=== PATIENT | male | born 1980 | race Caucasian/White ===

== ENCOUNTER 2017-02-21 09:31 | Observation (INO) | payer OTHER ==
[2017-02-21] MEDS ORDERED: TRUVADA 200 MG1 EAC1 PO (09:40)
[2017-02-21] MEDS ORDERED: LOSARTAN-HCTZ1 EAC4 PO (09:40)
[2017-02-21] MEDS ORDERED: DAPSONE PO (09:40)
[2017-02-21] MEDS ORDERED: XANAX0.5 M1 PO (09:41)
[2017-02-21] MEDS ORDERED: TIVICAY50 M1 PO (09:41)
[2017-02-21 10:48] LABS: BASO % 0.4 % (0-2); EOS % 1.8 % (0-7); EOSINOPHIL ABSOLUTE COUNT 0.1 tho/cmm (0.0-0.7); HCT-HEMATOCRIT 41.9 % (36.0-53.5); HGB-HEMOGLOBIN 14.6 gm/dl (13.5-17.0); LYMPH % 14.1 % (20-45); LYMPH ABSOLUTE COUNT 0.6 tho/cmm (0.8-4.5); MCH (MEAN CORPUSCULAR HGB) 32.3 pg (28.0-32.0); MCHC MEAN CORPUSCULAR HGB CONC 34.8 % (32.0-36.0); MCV (MEAN CELL VOLUME) 92.7 fl (82.0-96.0); MEAN PLATELET VOLUME 9.3 cmc (9.4-12.4); MONO % 8.4 % (0-12); MONOCYTE ABSOLUTE COUNT 0.4 tho/cmm (0.0-1.2); NEUTROPHIL ABSOLUTE COUNT 3.4 tho/cmm (1.6-8.0); NEUTROPHIL-AUTOMATED 3.4 tho/cmm (1.6-8.0); NEUTROPHILS % 75.3 % (40-80); PLATELET COUNT 185 tho/cmm (150-450); RED BLOOD COUNT 4.52 mil/cmm (4.40-5.70); RED CELL DISTRIBUTION WIDTH 11.6 % (12.4-16.4); WHITE BLOOD COUNT 4.5 tho/cmm (4.0-10.0)
[2017-02-21 10:59] LABS: CREATININE 1.04 mg/dl (0.60-1.30); eGFR VALUE FOR BLACK >90 mL/Min
[2017-02-21 11:00] LABS: C-REACTIVE PROTEIN <0.3 mg/dl (0-0.9)
[2017-02-21] MEDS ORDERED: LUNESTA2 M1 PO (14:55)
[2017-02-22 06:11] LABS: EOS % 0.2 % (0-7); HCT-HEMATOCRIT 41.7 % (36.0-53.5); HGB-HEMOGLOBIN 14.3 gm/dl (13.5-17.0); IMMATURE GRANULOCYTES ABSOLUTE 0.01 tho/cmm (0-0.03); IMMATURE GRANULOCYTES PERCENT 0.2 % (0-0.3); LYMPH % 10.3 % (20-45); LYMPH ABSOLUTE COUNT 0.5 tho/cmm (0.8-4.5); MCH (MEAN CORPUSCULAR HGB) 32.1 pg (28.0-32.0); MCHC MEAN CORPUSCULAR HGB CONC 34.3 % (32.0-36.0); MCV (MEAN CELL VOLUME) 93.5 fl (82.0-96.0); MEAN PLATELET VOLUME 9.6 cmc (9.4-12.4); MONO % 0.9 % (0-12); NEUTROPHIL ABSOLUTE COUNT 3.8 tho/cmm (1.6-8.0); NEUTROPHIL-AUTOMATED 3.8 tho/cmm (1.6-8.0); NEUTROPHILS % 88.4 % (40-80); PLATELET COUNT 169 tho/cmm (150-450); RED BLOOD COUNT 4.46 mil/cmm (4.40-5.70); RED CELL DISTRIBUTION WIDTH 11.7 % (12.4-16.4); WHITE BLOOD COUNT 4.4 tho/cmm (4.0-10.0)
[2017-02-22 06:20] LABS: ANION GAP 14 mmol/L (0-20); BLOOD UREA NITROGEN 14 mg/dl (6-24); CALCIUM 9.3 mg/dl (8.5-10.5); CARBON DIOXIDE-VENOUS 29 mmol/L (22-32); CHLORIDE 98 mmol/l (96-110); CREATININE 1.09 mg/dl (0.60-1.30); GLUCOSE 140 mg/dL (70-110); POTASSIUM 4.8 mmol/L (3.7-5.1); SODIUM 136 mmol/L (135-145); eGFR VALUE FOR BLACK >90 mL/Min
[2017-02-22] MEDS ORDERED: MEDROL4 M1 PO (11:57)
[2017-02-22] MEDS ORDERED: PERCOCET 5-3251 EACH PO (12:03)
[2017-02-22] MEDS ORDERED: MIRALAX17 G2 PO (12:07)
[2017-02-22] MEDS ORDERED: IBUPROFEN (12:09)
[2017-02-22] MEDS ORDERED: TYLENOL325 M2 (12:09)
== END 2017-02-22 14:55 ==
LOC: EDMED 09:31 → EMR2 15:58 → 5EB 19:15
PROVIDERS: Emergency Medicine; Internal Medicine; ADMIT Family Medicine
DX: M51.37 Other intervertebral disc degeneration, lumbosacral region (principal); Z21 Asymptomatic human immunodeficiency virus [HIV] infection status; I10 Essential (primary) hypertension; F41.9 Anxiety disorder, unspecified; Z79.899 Other long term (current) drug therapy; Z88.1 Allergy status to other antibiotic agents; Z88.2 Allergy status to sulfonamides
CPT/HCPCS: A9577; G0378; G8978-GP-CI; G8980-GP-CH; G8980-GP-CI; J1170; J1650; J1885; J7050